=== PATIENT | male | born 1940 | race Asian ===

== ENCOUNTER 2023-01-20 17:24 | Emergency (ER) | payer MEDICARE ==
[~2023-01-20] VITALS: Ht 175.3 cm; Wt 52.2 kg
[2023-01-20] MEDS ORDERED: LEVO50TA11 PO (19:19)
[2023-01-20] MEDS ORDERED: SEMA0.258 SQ (19:19)
[2023-01-20] MEDS ORDERED: METF-1211 PO (19:19)
[2023-01-20] MEDS ORDERED: ALLO300T2 PO (19:19)
[2023-01-20] MEDS ORDERED: LOSA-382 PO (19:19)
[2023-01-20] MEDS ORDERED: EMPA10TA3 PO (19:19)
[2023-01-20] MEDS ORDERED: GABA-1181 PO (19:19)
[2023-01-20] MEDS ORDERED: ATOR40TA71 PO (19:19)
[2023-01-20] MEDS ORDERED: ASPI-1444 PO (19:26)
[2023-01-20] MEDS ORDERED: POTA-185 PO (19:26)
[2023-01-20] MEDS ORDERED: METO-391 PO (19:26)
[2023-01-20] MEDS ORDERED: FURO20TA4 PO (19:26)
[2023-01-20] MEDS ORDERED: APIX5TAB PO (19:26)
[2023-01-20 19:59] LABS: MEAN CORPUSCULAR HEMOGLOBIN 31.3 pg (26.0-34.0)
[2023-01-20 20:02] LABS: BASOPHILS % (AUTO) 0.9 % (0.0-2.0); EOSINOPHILS % (AUTO) 1.3 % (1.0-6.0); HEMATOCRIT 39.6 % (41-53); HEMOGLOBIN 12.8 g/dL (13.5-17.5); LYMPHOCYTES # (AUTO) 1.5 K/uL (1.0-4.8); LYMPHOCYTES % (AUTO) 20.7 % (22.0-44.0); MEAN CORPUSCULAR HGB CONC 32.2 G/dL (31.0-37.0); MEAN CORPUSCULAR VOLUME 97 fL (80-100); MONOCYTES # (AUTO) 0.8 K/uL (0.1-1.0); NEUTROPHILS # (AUTO) 4.7 K/uL (1.8-7.7); NEUTROPHILS % (AUTO) 66.1 % (40.0-70.0); RED BLOOD CELL COUNT(AUTO) 4.08 MIL/uL (4.50-5.90); RED CELL DISTRIBUTION WIDTH 14.7 % (11.5-14.5)
[2023-01-20 20:12] LABS: PROTHROMBIN TIME 10.4 SEC (9.4-11.6)
[2023-01-20 20:23] LABS: LACTIC ACID 3.6 mmol/L (0.4-2.0)
[2023-01-20 20:24] LABS: ANION GAP 10 mmol/L (8-16); CALCIUM, TOTAL 9.2 mg/dL (8.8-10.5); CARBON DIOXIDE 27 mmol/L (22-29); CHLORIDE 101 mmol/L (98-107); CREATININE 1.34 mg/dL (0.60-1.30); GLOMERULAR FILTR. RATE CALC 51 mL/min (>60); GLUCOSE,RANDOM 291 mg/dL (70-110); PLATELET COUNT (AUTO) 222 K/uL (150-450); SODIUM SERUM 138 mmol/L (136-145)
[2023-01-20] MEDS ORDERED: SODIUM CHLORIDE 0.9% 1,550 ML IV ONE (20:30)
[2023-01-20] MEDS ORDERED: PIPERACILLIN/TAZO 3.375 GM/D5W 50 ML IV ONE (20:30)
[2023-01-20 20:36] LABS: ALANINE AMINOTRANSFERASE 153 U/L (12-78); ALBUMIN 3.8 g/dL (3.4-5.0); ALKALINE PHOSPHATASE 199 U/L (46-116); ASPARTATE AMINOTRANSFERASE 87 U/L (15-37); BILIRUBIN,TOTAL 0.9 mg/dL (0.1-1.0); CREATINE KINASE, TOTAL ONLY 94 U/L (39-308); TOTAL PROTEIN, SERUM 7.6 g/dL (6.4-8.2)
[2023-01-20 20:57] LABS: APPEARANCE,URINE CLEAR (CLEAR); BILIRUBIN,URINE NEGATIVE (NEGATIVE); GLUCOSE, URINE (UA) >=1000 mg/dL (NEGATIVE); KETONES,URINE NEGATIVE (NEGATIVE); LEUKOCYTE ESTERASE ,URINE NEGATIVE (NEGATIVE); NITRATE,URINE NEGATIVE (NEGATIVE); OCCULT BLOOD,URINE NEGATIVE (NEGATIVE); PROTEIN,URINE NEGATIVE (NEGATIVE); SPECIFIC GRAVITIY, URINE 1.026 (1.003-1.030); UROBILINOGEN,URINE <=1.0 mg/dL (<=1.0)
[2023-01-20 21:11] LABS: BACTERIA,URINE None Seen /HPF (None Seen); RBC,URINE 0-2 /HPF (0-2); WBC,URINE 0-2 /HPF (0-5)
[2023-01-20 21:12] LABS: SQUAMOUS EPITHELIAL CELL,UR Rare /LPF (None Seen)
[2023-01-20 21:16] LABS: COVID AG,FIA SOURCE NASOPHARYNGEAL
[2023-01-20 22:50] LABS: LACTIC ACID 1.2 mmol/L (0.4-2.0)
[2023-01-21 00:34] VITALS: BP 123/73
== END 2023-01-21 01:48 | disposition short-term general hospital (02) ==
LOC: EMS 17:30
DX: R41.82 Altered mental status, unspecified (principal); A41.9 Sepsis, unspecified organism; E86.0 Dehydration; E11.9 Type 2 diabetes mellitus without complications; I10 Essential (primary) hypertension; F03.90 Unspecified dementia, unspecified severity, without behavioral disturbance, psychotic disturbance, mood disturbance, and anxiety; Z20.822 Contact with and (suspected) exposure to COVID-19
CPT/HCPCS: 99285; 96365; 70450; 71045; 87426; 80053; 81001; 82550; 83605; 83880; 84484; 85025; 85610; 85730; 87040; 93005; 51702; 36415; J2543; J7030